=== PATIENT | male | born 1960 | race Caucasian/White ===

== ENCOUNTER 2021-09-09 13:55 | Outpatient (CLI) | payer OTHER, SELFPAY ==
--- NOTE | 2021-09-09 | CT_ITS ---
WS: [id number] CT CERVICAL SPINE TECHNIQUE: Noncontrast CT of the cervical spine with coronal and sagittal reformatted images. CLINICAL INFORMATION: NECK PAIN COMPARISON: None. DLP: [id number] scans at [facility] use at least one of these dose optimization techniques: automated e xposure control; mA and/or kV adjustment per patient size (includes targeted exams where dose is matc hed to clinical indication); or iterative reconstruction. FINDINGS: Straightening of the normal cervical lordosis. Degenerative arthritis at the C1-C2 articulation. Norm al craniocervical junction. C2-C3: Minimal central disc bulging. Spinal canal and foramen are patent. C3-C4: Small shallow central disc bulging. Slight effacement of ventral thecal sac. Spinal canal and foramen are patent. C4-C5: Tiny shallow central disc bulging. Slight contact of the cervical cord with mild central canal stenosis. Mild facet arthropathy. Mild left and no significant right foraminal narrowing. C5-C6: Mild disc bulging with slight effacement of ventral thecal sac. Moderate facet arthropathy. Ti ny shallow central disc bulging with mild central canal stenosis. Mild bilateral foraminal narrowing. C6-C7: Mild disc osteophytic ridging. Mild to moderate facet arthropathy. Spinal canal and foramen ar e patent. C7-T1: Normal Mastoid air cells are well aerated. Visualized posterior nasopharynx: Normal. Prevertebral soft tissues: Normal. CT/CT cervical spin wo con* [id number] IMPRESSION: 1. Normal cervical alignment. No high-grade central canal narrowing. 2. Tiny central disc bulging with mild central canal stenosis C4-C5 and C5-C6. 3. Mild bony foraminal narrowing more prominent at left C4-C5 and right C5-C6. 4. Mild to moderate facet arthropathy C4-C5 and C5-C6.
== END 2021-09-09 13:56 | disposition home or self-care (01) ==
PROVIDERS: PCP Family Medicine; Visit Provider Family Medicine
DX: M48.02 Spinal stenosis, cervical region (principal); M50.221 Other cervical disc displacement at C4-C5 level; M47.812 Spondylosis without myelopathy or radiculopathy, cervical region
CPT/HCPCS: 72125

== ENCOUNTER → 2021-09-30 08:31 | Outpatient (BNVA) | payer OTHER, SELFPAY | PROVIDERS: PCP Family Medicine; Referring Provider Family Medicine; Visit Provider Anesthesiology Pain Medicine | DX: M47.812 Spondylosis without myelopathy or radiculopathy, cervical region (principal); M50.90 Cervical disc disorder, unspecified, unspecified cervical region; F17.200 Nicotine dependence, unspecified, uncomplicated | CPT/HCPCS: 99204 ==

== ENCOUNTER 2021-10-29 06:00 | Outpatient (RCR) | payer OTHER, SELFPAY | END 2021-11-18 23:59 | disposition home or self-care (01) | LOC: SPT 06:00 | PROVIDERS: PCP Family Medicine; Referring Provider Anesthesiology Pain Medicine; Visit Provider Anesthesiology Pain Medicine | DX: S13.9XXD Sprain of joints and ligaments of unspecified parts of neck, subsequent encounter (principal); X58.XXXD Exposure to other specified factors, subsequent encounter | CPT/HCPCS: 97110; 97162; G0283 ==

== ENCOUNTER 2021-11-19 06:00 | Outpatient (RCR) | payer OTHER, SELFPAY | END 2021-12-16 23:59 | disposition home or self-care (01) | LOC: SPT 06:00 | PROVIDERS: PCP Family Medicine; Referring Provider Anesthesiology Pain Medicine; Visit Provider Anesthesiology Pain Medicine | DX: M47.812 Spondylosis without myelopathy or radiculopathy, cervical region (principal) | CPT/HCPCS: G0283 ==

== ENCOUNTER 2023-08-17 08:11 | Outpatient (CLI) | payer OTHER, SELFPAY ==
--- NOTE | 2023-08-17 | USCV_ITS ---
Lorenzo Bear Age: 62 Gender: M : 1960 Exam Date: 08/17/2023 08:37 Ordering Phys: Marty Wan MD Technologist: CT Exam Location: [facility] – [place] Indication: Risk Factors: Previous Vascular Surgery: Right Brachial BP: / Left Brachial BP: / Right Left Velocity (cm/s) Spectral Plaque Velocity (cm/s) Spectral Plaque Syst/Diast Broadening Syst/Diast Broadening 106.90/16.50 Prox CCA 122.20/ 16.70 108.10/22.10 Mid CCA 99.20 / 16.70 78.00/ 19.30 Distal CCA 84.60 / 17.80 75.20/ 25.10 Prox ICA 68.30 / 17.50 77.30/ 20.90 Mid ICA 70.00 / 22.20 96.10/ 27.20 Distal ICA 81.60 / 23.90 127.40 ECA 178.90 0.89 ICA/CCA 0.67 Antegrade Vertebral Antegrade 53.30/ 18.80 cm/s 50.30/ 11.50 cm/s Bi Subclavian Tri 96.10 135.2 0 CONCLUSIONS Right ICA stenosis <50%. Mild atheromatous plaque right carotid bulb/ICA. Left ICA stenosis <50%. Mild atheromatous plaque left carotid bulb/ICA. Intimal thickening in the common carotid arteries and internal carotid arteries bilaterally. Normal antegrade Doppler flow noted in the right vertebral artery. Normal antegrade Doppler flow noted in the left vertebral artery. Tyron Mock MD (Electronically Signed) Final Date: 17 August 2023 15:38 S
== END 2023-08-17 08:12 | disposition home or self-care (01) ==
LOC: RAD 08:16
PROVIDERS: PCP Family Medicine; Visit Provider Family Medicine
DX: H53.9 Unspecified visual disturbance (principal); I65.23 Occlusion and stenosis of bilateral carotid arteries
CPT/HCPCS: 93880

== ENCOUNTER 2025-01-20 08:51 | Outpatient (CLI) | payer OTHER, SELFPAY ==
--- NOTE | 2025-01-20 08:57 | CT_ITS ---
WS: [id number] LDCT LUNG CANCER SCREENING TECHNIQUE: Noncontrast CT of the chest with coronal and sagittal reformatted images. CLINICAL INFORMATION: NICOTINE DEPENDENCE, CIGARETTES COMPARISON: None. DLP: 74.79 mGy.cm DIvol: Mean CTDIvol: 1.50 (mGy) All CT scans at [facility] use at least one of these dose optimization techniques: automated exposure control; mA and/or kV adjustment per patient size (includes targeted exams where dose is matched to clinical indication); or iterative reconstruction. FINDINGS: Moderate chronic emphysematous changes. Calcified granulomas. Slight interstitial thickening in the lung bases. 4.5 mm nodule RIGHT lower lobe. Normal caliber thoracic aorta. Aortic calcification. Coronary calcification. No mediastinal or hilar lymphadenopathy. A few slightly prominent reactive lymph nodes. No axillary lymphadenopathy. Small esophageal hiatal hernia. Adrenal glands are normal. Mild thoracic curve and kyphosis. CT/CT lung screening [id number] IMPRESSION: LUNG-RADS: 2-Benign Appearance or Behavior FOLLOW UP: 12 Month: Continue annual screening with LDCT
== END 2025-01-20 08:52 | disposition home or self-care (01) ==
LOC: RAD 08:51
PROVIDERS: PCP Family Medicine; Visit Provider Family Medicine
DX: Z12.2 Encounter for screening for malignant neoplasm of respiratory organs (principal); F17.210 Nicotine dependence, cigarettes, uncomplicated; J43.8 Other emphysema; J84.10 Pulmonary fibrosis, unspecified; J98.4 Other disorders of lung; R91.1 Solitary pulmonary nodule; I70.0 Atherosclerosis of aorta; I25.10 Atherosclerotic heart disease of native coronary artery without angina pectoris; R59.0 Localized enlarged lymph nodes; K44.9 Diaphragmatic hernia without obstruction or gangrene; M43.8X4 Other specified deforming dorsopathies, thoracic region; M40.294 Other kyphosis, thoracic region
CPT/HCPCS: 71271

== ENCOUNTER 2025-02-16 01:49 | Emergency (ER) | payer OTHER, SELFPAY ==
[2025-02-16 01:51] VITALS: BP 149/97; PULSE 118; RESP 18; TEMP 37.8; O2SAT 93; BMI 29.5
--- NOTE | 2025-02-16 01:55 | ECG_ITS ---
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 Measurements Intervals [place] Rate: 109 P: 68 [place]: 125 QRS: 93 QRSD: 95 T: 71 QT: 308 QTc: 416 Interpretive Statements SINUS TACHYCARDIA BORDERLINE RIGHT AXIS DEVIATION [QRS AXIS > 90] ABNORMAL RHYTHM ECG No previous ECG available for comparison Electronically Signed On 02-20-2025 09:30:22 CDT by Melvin Busch M.D. [email or web address]
--- NOTE | 2025-02-16 01:55 | XRR_ITS ---
PROCEDURE INFORMATION: Exam: XR Chest Exam date and time: 02/16/2025 2:00 AM Age: 64 years old Clinical indication: Pain; Chest pressure; Additional info: Chest pain TECHNIQUE: Imaging protocol: Radiologic exam of the chest. Views: 1 view. COMPARISON: CT lung screening [id number] 01/20/2025 9:10 AM FINDINGS: Lungs: Unremarkable. No consolidation. Pleural spaces: Unremarkable. No pleural effusion. No pneumothorax. Heart/Mediastinum: Unremarkable. No cardiomegaly. Bones/joints: Unremarkable. XR/XR chest 1V portable [id number] IMPRESSION: No acute findings.
--- NOTE | 2025-02-16 02:01 | W.ED.CHESTPA ---
HPI - Chest Pain General: Chief Complaint: Chest Pain Stated Complaint: Chest Pains SOB Time Seen by Provider: 02/16/25 01:53 History of Present Illness: 64-year-old man with a history of tobacco dependence, hypertension and probable COPD who presents to the emergency room with chest discomfort. He says tonight he started having some discomfort in his chest into his neck. He says he felt like it was a muscle spasm. He has had some increased cough. He has a temp of 100.0 on presentation. He says he feels more short of breath than usual. He is a bit tachycardic on presentation. No oxygen requirement. No altered mental status. No focal motor deficits. No known cardiac history. Related Data Home Medications ?Medication ?Instructions ?Recorded ?Confirmed losartan 50 mg tablet 50 mg PO DAILY 12/06/20 08/21/22 omeprazole 40 mg capsule,delayed 40 mg PO DAILY 12/06/20 08/21/22 release albuterol sulfate 90 mcg/actuation 2 puff inhalation Q6H PRN 12/23/20 08/21/22 aerosol inhaler (Ventolin HFA) shortness of breath or wheezing diclofenac sodium 75 mg 75 mg PO BID 09/30/21 08/21/22 tablet,delayed release Previous Rx's ?Medication ?Instructions ?Recorded fluorouracil 0.5 % topical cream 1 applic topical BID 2 weeks #30 08/21/22 grams azithromycin 250 mg tablet See Rx Instructions PO .COMPLEX #6 02/16/25 (Zithromax Z-Contreras) tabs dexamethasone 6 mg tablet 6 mg PO DAILY 5 days #5 tabs 02/16/25 Allergies Allergy/AdvReac Type Severity Reaction Status Date / Time No Known Allergies Allergy Verified 02/16/25 01:58 Review of Systems Narrative: Constitutional symptoms: Negative except as documented in HPI. Skin symptoms: Negative except as documented in HPI. Eye symptoms: Negative except as documented in HPI. ENMT symptoms: Negative except as documented in HPI. Respiratory symptoms: Negative except as documented in HPI. Cardiovascular symptoms: Negative except as documented in HPI. Gastrointestinal symptoms: Negative except as documented in HPI. Genitourinary symptoms: Negative except as documented in HPI. Musculoskeletal symptoms: Negative except as documented in HPI. Neurologic symptoms: Negative except as documented in HPI. Psychiatric symptoms: Negative except as documented in HPI. Endocrine symptoms: Negative except as documented in HPI. PFSH ED PFSH: Medical History Hypertension Family History Sister Cancer Denies family history of Diabetes CAD (coronary artery disease) Social History Smoking and tobacco/nicotine status: current every day tobacco/nicotine user Alcohol intake: current Alcohol intake frequency: holidays/special occasions only Substance/Drug Use: never Physical Exam Narrative: EXAM NARRATIVE: General: Alert, no acute distress. Skin: Warm, dry. Head: Normocephalic, atraumatic. Neck: Supple, trachea midline. Eye: Extraocular movements are intact. Ears, nose, mouth and throat: mucosa moist. Cardiovascular: Regular, tachycardic, normal peripheral perfusion. Respiratory: Lungs are clear to auscultation, respirations are non-labored, breath sounds are equal, Symmetrical chest wall expansion. Gastrointestinal: Soft, Nontender, Non distended Musculoskeletal: Normal ROM, no deformity. Neurological: Alert and oriented, No focal neurological deficit observed. Psychiatric: Cooperative, appropriate mood & affect. Course Vital Signs: Vital signs: Vital Signs Temperature 100.0 F H 02/16/25 01:51 Pulse Rate 94 02/16/25 03:00 Respiratory Rate 27 H 02/16/25 03:00 Blood Pressure 160/89 02/16/25 03:00 Pulse Oximetry 92 02/16/25 03:00 Oxygen Delivery Me thod Room Air 02/16/25 03:00 MDM - Chest Pain Medical Decision Making Differential diagnosis for patient with chest pain includes but is not limited to and based on the above HPI, review of systems and physical exam: Pneumonia. unstable angina. angina. Acute coronary syndrome / [place]. Pulmonary embolism. Costochondritis / musculoskeletal. Pleurisy. Pericarditis. Esophageal spasm. Pancreatis. Cholecystitis. Orders placed to evaluate differential diagnosis based on the above differential, HPI and physical exam EKG: Time 1:53 AM. Rate 109. Sinus tachycardia, No ST-T changes, no ectopy, normal [place] & QRS intervals, This was reviewed and interpreted by myself the ER physician at 1:58 AM Lab Review: Laboratory results were reviewed and interpreted by myself the emergency room physician. Mild leukocytosis. No anemia. No renal failure. Serial troponins are negative. Flu COVID and RSV are negative. I reviewed the patient's medical record. Chest x-ray: No acute process. No infiltrate. No pneumothorax. This was reviewed and interpreted by myself the emergency room physician. I also reviewed the radiology report. Reexamination: Patient remained stable. No increased work of breathing. No altered mental status. No focal motor deficits. Patient continues to have a cough. Bit of a temp. Placing him on some antibiotics and steroids. He continues to insist he feels like it is a pulled muscle. Assessment and plan: Noncardiac chest pain Upper respiratory infection Tobacco dependence ? IV Toradol and Decadron in the emergency room - Discharged home - Discussed plan with patient. Answered any questions. - Evaluation and treatment of this problem were appropriate in the emergency setting. Lab Data 02/16/25 02:01 02/16/25 02:01 Radiology Impressions Chest X-Ray 02/16/25 01:55 IMPRESSION: No acute findings. Laboratory Results WBC 13.63 10^3/uL (3.29-11.43) H 02/16/25 02:01 RBC 4.46 10^6/uL (3.85-5.65) 02/16/25 02:01 Hgb 15.50 g/dL (11.27-16.99) 02/16/25 02:01 Hct 43.8 % (37-53) 02/16/25 02:01 MCV 98.2 fl (82-101) 02/16/25 02:01 MCH 34.8 pg (27-33) H 02/16/25 02:01 MCHC 35.4 g/dL (30-55) 02/16/25 02:01 RDW 12.9 % (12.1-15.1) 02/16/25 02:01 Plt Count 230 10^3/cmm (157-399) 02/16/25 02:01 MPV 8.1 fL (7.4-10.4) 02/16/25 02:01 Neut % (Auto) 78.2 % 02/16/25 02:01 Lymph % (Auto) 12.7 % 02/16/25 02:01 [place] % (Auto) 6.3 % 02/16/25 02:01 Eos % (Auto) 1.8 % 02/16/25 02:01 Baso % (Auto) 0.6 % 02/16/25 02:01 Neut # (Auto) 10.67 10^3/uL (1.8-7.7) H 02/16/25 02:01 Lymph # (Auto) 1.7 10^3/uL (0.8-4.8) 02/16/25 02:01 [place] # (Auto) 0.9 10^3/uL (0.2-0.9) 02/16/25 02:01 Eos # (Auto) 0.2 10^3/uL (0.0-0.8) 02/16/25 02:01 Baso # (Auto) 0.1 10^3/uL (0.0-0.1) 02/16/25 02:01 Nucleated RBC % (auto) 0 % 02/16/25 02:01 Nucleated RBCs # 0.0 /100WBC 02/16/25 02:01 D-Dimer 0.37 ug/mLFEU (0-0.59) 02/16/25 02:01 Sodium 138 mmol/L (136-145) 02/16/25 02:01 Potassium 4.5 mmol/L (3.5-5.1) 02/16/25 02:01 Chloride 102 mmol/L (98-107) 02/16/25 02:01 Carbon Dioxide 23 mmol/L (22-29) 02/16/25 02:01 Anion Gap 17.5 (5-19) 02/16/25 02:01 BUN 8 mg/dL (8-23) 02/16/25 02:01 Creatinine 1.1 mg/dL (0.7-1.2) 02/16/25 02:01 GFR Calculation 67.4 mL/min (90-130) L 02/16/25 02:01 Glucose 122 mg/dL (65-115) H 02/16/25 02:01 Calculated Osmolality 286 mOsm/kg (285-295) 02/16/25 02:01 Lactic Acid 1.4 mmol/L (0.5-2.2) 02/16/25 02:01 Calcium 9.5 mg/dL (8.5-10.5) 02/16/25 02:01 Total Bilirubin 0.5 mg/dL (0.15-1.2) 02/16/25 02:01 AST 23 U/L (0-40) 02/16/25 02:01 ALT 28 U/L (0-41) 02/16/25 02:01 Alkaline Phosphatase 113 U/L (40-130) 02/16/25 02:01 Troponin T Baseline 8 ng/L (0-15) 02/16/25 02:01 Troponin T 120 Minute 8.16 ng/L (0-15) 02/16/25 03:14 Delta Troponin T 0.16 ABS# (0-10) 02/16/25 03:14 NT-Pro-B Natriuret Pep 37 pg/mL (0-125) 02/16/25 02:01 Total Protein 8.0 g/dL (6.6-8.7) 02/16/25 02:01 Albumin 4.5 g/dL (3.5-5.2) 02/16/25 02:01 Globulin 3.5 g/dL (1.3-4.6) 02/16/25 02:01 Influenza A (PCR) Negative (Negative) 02/16/25 02:01 Influenza Type B (PCR) Negative (Negative) 02/16/25 02:01 RSV (PCR) Negative (Negative) 02/16/25 02:01 SARS-CoV-2 (PCR) Negative (Negative) 02/16/25 02:01 All radiology interpretation(s) finalized by discharge Discharge Plan Discharge Patient Disposition: Home Clinical Impression: Non-cardiac chest pain Condition: Stable Prescriptions: New azithromycin [Zithromax Z-Contreras] 250 mg tablet See Rx Instructions .ROUTE .COMPLEX Qty: 6 0RF Rx Instructions: For 250 mg dose pack: take 500 mg today (day 1), then 250 mg for 4 days (days 2-5) dexamethasone 6 mg tablet 6 mg PO DAILY 5 Days Qty: 5 0RF No Action diclofenac sodium 75 mg tablet,delayed release (DR/EC) 75 mg PO BID losartan 50 mg tablet 50 mg PO DAILY omeprazole 40 mg capsule,delayed release(DR/EC) 40 mg PO DAILY albuterol sulfate [Ventolin HFA] 90 mcg/actuation HFA aerosol inhaler 2 puff inhalation Q6H PRN (Reason: shortness of breath or wheezing) fluorouracil 0.5 % cream 1 applic topical BID 14 Days Qty: 30 2RF Rx Instructions: Apply thin film twice daily for 2 weeks alternating sites Discharge Orders: Discharge ED (Routine); Ordered 02/16/25 Ordered By: Kayla Rios Referrals: Marty Wan MD [Primary Care Provider, Family Practice] Discharge Diet: Usual diet Discharge Activity: Increase activity as tolerated Patient Instructions: Noncardiac Chest Pain (ED), Opioid Safety, Pain Management Activity Restrictions/Additional Instructions: Thank you for choosing [facility] for your healthcare needs today. You have been screened and evaluated and felt safe for discharge. Health conditions do change or evolve sometimes and as such it is important that you follow up with your Primary Doctor to be re checked, 3-5 days is a general good time frame for follow up. 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
[2025-02-16 02:22] LABS: Basophils # 0.1 10^3/uL (0.0-0.1); Basophils % 0.6 %; Eosinophils # 0.2 10^3/uL (0.0-0.8); Eosinophils % 1.8 %; Hematocrit 43.8 % (37-53); Lymphocytes # 1.7 10^3/uL (0.8-4.8); Lymphocytes % 12.7 %; Mean Corpuscular HGB Conc 35.4 g/dL (30-55); Mean Corpuscular Hemoglobin 34.8 pg (27-33); Mean Corpuscular Volume 98.2 fl (82-101); Mean Platelet Volume 8.1 fL (7.4-10.4); Monocytes # 0.9 10^3/uL (0.2-0.9); Monocytes % 6.3 %; Neutrophils # 10.67 10^3/uL (1.8-7.7); Neutrophils % 78.2 %; Nucleated Red Blood Cells % 0 %; Platelet Count 230 10^3/cmm (157-399); Red Blood Count 4.46 10^6/uL (3.85-5.65); Red Cell Distribution Width 12.9 % (12.1-15.1); White Blood Count 13.63 10^3/uL (3.29-11.43)
[2025-02-16 02:23] VITALS: BP 144/85; PULSE 108; RESP 24; O2SAT 94
[2025-02-16 02:36] LABS: D Dimer 0.37 ug/mLFEU (0-0.59)
[2025-02-16 02:39] LABS: Lactic Sepsis W/Reflex 1.4 mmol/L (0.5-2.2)
[2025-02-16 02:40] LABS: Troponin(5th) Baseline 8 ng/L (0-15)
[2025-02-16 02:50] LABS: Alanine Aminotransferase 28 U/L (0-41); Albumin Level 4.5 g/dL (3.5-5.2); Alkaline Phosphatase 113 U/L (40-130); Anion Gap 17.5 (5-19); Aspartate Amino Transferase 23 U/L (0-40); Blood Urea Nitrogen 8 mg/dL (8-23); Calcium 9.5 mg/dL (8.5-10.5); Carbon Dioxide 23 mmol/L (22-29); Chloride 102 mmol/L (98-107); Creatinine Clr Calc Pharmacy 75.5271; Globulin 3.5 g/dL (1.3-4.6); Glomerular Filtration Rate 67.4 mL/min (90-130); Glucose 122 mg/dL (65-115); NT Pro B Type Natriuretic Pept 37 pg/mL (0-125); Osmolality Calculated 286 mOsm/kg (285-295); Potassium 4.5 mmol/L (3.5-5.1); Sodium 138 mmol/L (136-145); Total Bilirubin 0.5 mg/dL (0.15-1.2)
[2025-02-16] MEDS: aspirin 81 mg Chew Tablet 324 MG PO (02:58)
[2025-02-16 02:59] LABS: Influenza A NEGATIVE (Negative); Influenza B NEGATIVE (Negative); Respiratory Syncytial Virus Ce NEGATIVE (Negative); SARS-CoV-2 PCR NEGATIVE (Negative)
[2025-02-16 03:00] VITALS: BP 160/89; PULSE 94; RESP 27; O2SAT 92
[2025-02-16 03:43] LABS: Troponin 5 2HR 8.16 ng/L (0-15); Troponin 5 2HR Delta 0.16 ABS# (0-10)
[2025-02-16] MEDS: ketorolac 30 mg/mL INJ 15 MG IVP (04:06)
[2025-02-16] MEDS: dexamethasone 10 mg/mL INJ IVP (04:07)
[2025-02-16 04:34] VITALS: BP 130/80; PULSE 96; RESP 28; O2SAT 91
== END 2025-02-16 04:35 | disposition home or self-care (01) ==
PROVIDERS: Emergency Provider Emergency Medicine; PCP Family Medicine
DX: R07.89 Other chest pain (principal); Z11.52 Encounter for screening for COVID-19; Z72.0 Tobacco use; I10 Essential (primary) hypertension
CPT/HCPCS: 36415; 71045; 80053; 83605; 83880; 84484; 85025; 85378; 87040; 87637; 93005; 96374; 96375; 99285; J1100; J1885; J9999